=== PATIENT | male | born 1965 | race Caucasian/White ===

== ENCOUNTER 2025-01-08 21:03 | Emergency (ER) | payer OTHER, SELFPAY ==
[2025-01-08 21:09] VITALS: BP 149/96; PULSE 82; RESP 16; TEMP 36.4; O2SAT 95; BMI 34.3
--- NOTE | 2025-01-08 21:28 | CRLHL7_ITS ---
For Patients: As a result of the Century Cures Act, medical imaging exams and procedure reports are released immediately into your electronic medical record. You may view this report before your referring provider. If you have questions, please contact your health care provider. INDICATION: Fell onto back, hit head, pain in lower cervical and upper thoracic spine. TECHNIQUE: CT head without contrast. COMPARISON: None. FINDINGS: Detailed evaluation slightly limited by motion. Within these limits: CSF spaces: Within normal limits for age. Brain parenchyma and extra-axial spaces: Mild generalized volume loss consistent with physiologic aging. No sign of mass, hemorrhage, or midline shift. No extra-axial fluid collection. Skull base and calvarium: The visualized paranasal sinuses and mastoid air cells demonstrate no acute or significant findings. The visualized orbits are grossly unremarkable. No skull fractures. IMPRESSION: No acute intracranial abnormality. No acute fracture. Please note that all CT scans at this facility use dose modulation, iterative reconstruction, and/or weight-based dosing when appropriate to reduce radiation dose to as low as reasonably achievable. Dictated by Matt Becker MD @ 01/08/2025 10:39:23 PM (Electronically Signed)
--- NOTE | 2025-01-08 21:28 | CRLHL7_ITS ---
For Patients: As a result of the Cures Act, medical imaging exams and procedure reports are released immediately into your electronic medical record. You may view this report before your referring provider. If you have questions, please contact your health care provider. INDICATION: Fell onto back, pain in lower cervical and upper thoracic spine. TECHNIQUE: CT cervical spine without contrast. COMPARISON: None. FINDINGS: Vertebrae: Alignment is unremarkable. There are no fractures or suspicious bony lesions. Discs and facet joints: Multilevel spinal degenerative changes. Extraspinal findings: Prevertebral soft tissues, visualized airway, and visualized lungs are unremarkable. IMPRESSION: No acute fracture or dislocation. Please note that all CT scans at this facility use dose modulation, iterative reconstruction, and/or weight-based dosing when appropriate to reduce radiation dose to as low as reasonably achievable. Dictated by Matt Becker MD @ 01/08/2025 10:44:21 PM (Electronically Signed)
--- NOTE | 2025-01-08 21:28 | CRLHL7_ITS ---
For Patients: As a result of the Century Cures Act, medical imaging exams and procedure reports are released immediately into your electronic medical record. You may view this report before your referring provider. If you have questions, please contact your health care provider. INDICATION: Fell onto back, pain in lower cervical and upper thoracic spine. TECHNIQUE: CT thoracic spine without contrast. COMPARISON: None. FINDINGS: Vertebrae: No definite acute fracture or dislocation. Mild anterior wedging of the T5 vertebral body, favored chronic. Exaggerated thoracic kyphosis. Discs and facet joints: Multilevel degenerative changes. Extraspinal findings: Prevertebral soft tissues are unremarkable. No acute or significant extraosseous findings. IMPRESSION: No definite acute fracture or dislocation. Please note that all CT scans at this facility use dose modulation, iterative reconstruction, and/or weight-based dosing when appropriate to reduce radiation dose to as low as reasonably achievable. Dictated by Matt Becker MD @ 01/08/2025 10:54:35 PM (Electronically Signed)
--- NOTE | 2025-01-08 21:29 | ED.GENADULT ---
HPI - General Adult General Date Seen: 01/08/25 Chief complaint: Back Injury/Pain Stated complaint: fell, hit head Time Seen by Provider: 01/08/25 21:08 Source: patient Mode of arrival: ambulatory Limitations: no limitations History of Present Illness HPI narrative: Patient is a 59-year-old male presenting to emergency department after slipping on the ice around 20:00. States he fell backwards and hit his upper back in the back of his head. States most of his pain seems to be in his upper back just below the shoulders but does state is improving. He is not on any blood thinners. Denies photophobia, phonophobia, headache, weakness, numbness, chest pain, shortness breath. No other injuries noted. States he came in to make sure there are no fractures. Related Data Home Medications ?Medication ?Instructions ?Recorded ?Confirmed No Known Home Medications 01/08/25 01/08/25 Allergies Allergy/AdvReac Type Severity Reaction Status Date / Time No Known Drug Allergies Allergy Verified 01/08/25 21:15 Review of Systems Status of ROS: Reports: 10 or more systems reviewed and unremarkable except as noted in History and below Exam Narrative: Exam Narrative: Const: Well-nourished, Well-developed, in mild distress Eyes: PERRL, no conjunctival injection, and symmetrical lids HENT: Atraumatic external nose and ears. Moist mucous membranes. Neck: Symmetric, trachea midline, No thyromegaly. CVS: RRR, No murmurs or gallops. Peripheral pulses 2+ and equal in all extremities RESP: Unlabored respiratory effort. Clear to auscultation bilaterally. GI: Nontender/Nondistended, No rebound or guarding. MSK:Extremities w/o deformity, Normal Active ROM, midline tenderness around T1 Skin: Warm, Dry. No rashes or lesions. Neuro: Normal Muscle tone, No focal neurological deficits. Psych: Awake, Alert, & Oriented x3. Appropriate mood and affect. Const: Vital Signs, click to edit/add: Vital Signs - 24 hr 01/08/25 21:09 Temperature 97.6 F Pulse Rate [Left P ulse Oximeter] 82 Respiratory Rate 16 Blood Pressure [Ri ght Upper Arm] 149/96 H Pulse Oximetry 95 Oxygen Delivery Me thod Room Air Course Vital Signs Vital signs: Initial Vital Signs Temperature 97.6 F 01/08/25 21:09 Temperature Source Temporal Artery Scan 01/08/25 21:09 Pulse Rate 82 01/08/25 21:09 Pulse Rhythm Regular 01/08/25 21:09 Respiratory Rate 16 01/08/25 21:09 Blood Pressure 149/96 H 01/08/25 21:09 Blood Pressure Mean 113 H 01/08/25 21:09 Blood Pressure Position Sitting 01/08/25 21:09 Pulse Oximetry 95 01/08/25 21:09 Oxygen Delivery Method Room Air 01/08/25 21:09 Vital Signs Temperature 97.6 F 01/08/25 21:09 Pulse Rate 82 01/08/25 21:09 Respiratory Rate 16 01/08/25 21:09 Blood Pressure 149/96 H 01/08/25 21:09 Pulse Oximetry 95 01/08/25 21:09 Oxygen Delivery Method Room Air 01/08/25 21:09 Temperature 97.6 F 01/08/25 21:09 Pulse Rate 82 01/08/25 21:09 Respiratory Rate 16 01/08/25 21:09 Blood Pressure 149/96 H 01/08/25 21:09 Pulse Oximetry 95 01/08/25 21:09 Oxygen Delivery Method Room Air 01/08/25 21:09 Medical Decision Making MDM Narrative Medical decision making narrative: Patient is 59-year-old male presenting to the emergency department after a fall. This was a mechanical fall. He has full range of motion of his neck by will CT scan his head and cervical spine. Has also been upper thoracic midline pain so it is CT scan of the thoracic spine. He is agreeable to this plan. CT is reviewed by myself the radiologist showed no acute concerning abnormalities. Patient is doing well at this time is safe for discharge. He is agreeable to this plan. Imaging Data CT scan head: Attestation: I have reviewed the pertinent imaging results. Radiologist's impression: No acute intracranial abnormality. No acute fracture. Please note that all CT scans at this facility use dose modulation, iterative reconstruction, and/or weight-based dosing when appropriate to reduce radiation dose to as low as reasonably achievable. Dictated by Matt Becker MD @ 01/08/2025 10:39:[address] scan cervical spine: Attestation: I have reviewed the pertinent imaging results. Radiologist's impression: No acute fracture or dislocation. Please note that all CT scans at this facility use dose modulation, iterative reconstruction, and/or weight-based dosing when appropriate to reduce radiation dose to as low as reasonably achievable. Dictated by Matt Becker MD @ 01/08/2025 10:44:[address] scan thoracic spine: Attestation: I have reviewed the pertinent imaging results. Radiologist's impression: No definite acute fracture or dislocation. Please note that all CT scans at this facility use dose modulation, iterative reconstruction, and/or weight-based dosing when appropriate to reduce radiation dose to as low as reasonably achievable. Dictated by Matt Becker MD @ 01/08/2025 10:54:35 PM Discharge Plan Discharge Clinical Impression: Thoracic back pain Qualifiers: Chronicity: acute Back pain laterality: midline Qualified Code(s): M54.6 - Pain in thoracic spine Patient Disposition: Home, Self-Care Condition: Stable Instructions: Back Pain (ED) Additional Instructions: No fractures were seen on your imaging. Take Tylenol and ibuprofen for pain. Return to emergency department for new or worsening symptoms. Prescriptions: No Action No Known Home Medications Follow Up/Referrals: Provider,Not a Local [Primary Care Provider] - Stand Alone Forms: MyHealth Info Instructions
--- OUTSIDE RECORDS SUMMARY | 2025-01-08 22:19 | XMS_ITS | Clinical Summary ---
Author Organization [facility] Address [address] [place] [address] Care Team Providers Care Escort Vehicle Driver Name Role Phone Pcp, No Primary Care Provider Unavailabl e Allergies No known active allergies Medications CPAPIndications :LYDIA (obstructive sleep apnea) CPAP machine for home use at pressure 6-17 cmw, full face mask x1/3month with full face cushion x1/mo 1 Each 11 03/16/2023 Active Active Problems Problem Noted Date Diagnosed Date LYDIA HST AHI-57 04/28/2021 Allergic rhinitis 04/28/2021 Social History Tobacco Use Types Packs/Day Years Used Date Smoking Tobacco: Every Day Cigarettes 0.5 31 Smokeless Tobacco: Never Tobacco Cessation:Ready to Q uit: Yes; Counseling Given: Yes Comments:cut down from 2 ppd to 1/2 ppd Alcohol Use Standard Drinks/Week Comments Yes 0 (1 standard drink = 0.6 oz pur e alcohol) rare <1 year Social Connections Answer Date Recorded Frequency of Communication with Friends and Fami ly Not on file 11/06/2021 Financial Resource Strain Answer Date R ecorded Difficulty of Paying Living Expenses Not on file 11/06/2021 Difficulty of Paying Living Expenses Not on file 11/06/2021 Sex and Gender Information Value Date Recorded Sex Assigned at Not on file 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 Gender Identity Not on file Sexual Orientation Not on file Obstetrics History Last Filed Vital Signs Vital Sign Reading Time Taken Comments Blood Pressure 158/83 07/08/2021 3:16 PM CDT Pulse 76 07/08/2021 3:16 PM CDT Temperature 36.8 C (98.3 F) 11/08/2019 11:30 AM FIELD OPERATIONS TECHNICIAN Respiratory Rate 16 11/08/2019 12:1 5 PM FIELD OPERATIONS TECHNICIAN Oxygen Saturation 95% 07/08/2021 3:14 PM CDT Inhaled Oxygen Concentration - - Weight 114.8 kg (253 lb 1.6 oz) 07/08/2021 3:14 PM CDT Height 187.8 cm (6' 1.92) 03/30/2021 2:10 PM CD T Body Mass Index 32.57 03/30/2021 2:10 PM CDT Plan of Treatment Health Maintenance Due Date Last Done Comments Tdap 1974 Depression screening for age 12+ 1975 HIV for age 15-65 1978 Hepatitis C screening for age 18-79 1981 Tetanus booster 1983 Colonoscopy through age 75 2008 Lipids for age 45-75 2008 Pneumococcal series for age 50+ (1 of 1 - PCV) 013 Zoster (shingles) series for age 50+ (1 of 2) 05/27/20 13 BMI (ht and wt on same day) for age 18+ 03/30/2022 0 03/30/2021 COVID-19 vaccine series ( - 2023- season) 4 Influenza for age 50-64 07/07/2024 RSV vaccine for adults or pr egnancy (1 - 1-dose 75+ series) 2038 Medical Devices Implanted Type Area Data Visualization Developer Device Identifier Shelf Expiration Date Model / Serial / Lot Mesh Ventral 4.5in Ventralight St [address] - [id number] Implanted:Qty: 1 on 11/08/2019 by Julius Miller MD at [facility] N/A: Abdomen [employer] 08/03/2021 [id number] / / [id number] Description:[employer] Insurance * Guarantor: Serge Garcia Account Type Relation to Patient Date of Phone Billing Address Personal/Family Self 1965 [id number] [place] [address] LAURA SAINI [id number] Advance Directives * Full Code (Latest Code Status on File) Date Activated Date Inactivated Comments 11/08/2019 7:29 AM 11/08/2019 2:30 PM Question Answer Comments Code Status Discussion: Not Discussed Care Teams Escort Vehicle Driver Relationship Specialty Start Date End Date Pcp, No . PCP - General 03/17/21
--- OUTSIDE RECORDS SUMMARY | 2025-01-08 22:19 | XMS_ITS | Encounter Summary ---
Author Organization [place] Address [address] [place] [address] Care Team Providers Care Vice President Sales Name Role Phone Giovanny Neil PA-C Primary Care Provider [facility] Primary Care Provider Encounter Details Date Type Department Care Team (Late st Contact Info) Description 08/20/2013 [facility] [address] [address] [facility] Social History Tobacco Use Types Packs/Day Years Used Date Smoking Tobacco: Some Days Cigars Last attempted to quit: 07/05/2011 Smokeless Tobacco: Never Comments:2-5 cigars daily Alcohol Use Standard Drinks/Week Comments No 0 (1 standard drink = 0.6 oz pur e alcohol) Sex and Gender Information Value Date Recorded Sex Assigned at Not on file Legal Sex 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
--- OUTSIDE RECORDS SUMMARY | 2025-01-08 22:19 | XMS_ITS | Clinical Summary ---
Author Organization [facility] Address [address] [place] [address] Care Team Providers Care Recovery Room Nurse Name Role Phone Needs Pcp, Assignment Primary Care Provider [phone] Source Comments You are receiving this document as you are listed as the primary care provider,follow-up provider, or the patient has been referred to you for consultation.This is in compliance with the Medicare and[facility] Hospital[facility] EHR Incentive Program,which states Providers who transition their patient to another setting of careor provider of care or refers their patient to another provider of care shouldprovide summary care record for each transition of care or referral. [facility] Allergies No known active allergies Medications ibuprofen (MOTRIN) 200 MG tablet Take 200-400 mg by mouth every 4 hours as needed for Pain. Active Active Problems Problem Noted Date Diagnosed Date Tobacco use disorder 09/25/2017 Class 1 obesity due to exces s calories without serious comorbidity with body mass index (BMI) of 32.0 to 32.9 in adult 09/25/2017 LYDIA (obstructive sleep apnea) 09/25/2017 Hyperlipidemia LDL goal <130 07/29/2013 Immunizations Immunization Administration Dates Next Due Influenza IIV4 (Quadrivalent) 0.5mL ([id number]) 04/2019 Tdap 07/05/2013 Family History Medical History Relation Name Comments Cancer, Lung Father Coronary Artery Disease Mother Diabetes, Type II Mother Diabetes, Type II Brother Migraines Daughter 1 Migraines Daughter 2 Relation Name Status Comments Father (Age 43) Mother (Age 63) DC Brother Alive Daughter 1 Alive Daughter 2 Alive Daughter 3 Alive Sister 1 Alive Sister 2 Alive Son 1 Alive Son 2 Alive Social History Tobacco Use Types Packs/Day Years Used Date Smoking Tobacco: Every Day Cigarettes 0.5 31 Smokeless Tobacco: Never Tobacco Cessation:Ready to Q uit: No; Counseling Given: Yes Alcohol Use Standard Drinks/Week Comments Yes 0 (1 standard drink = 0.6 oz pur e alcohol) rare less than once a year PHQ-2 Answer Date Recorded PHQ-2 Score 0 10/11/2019 Sex and Gender Information Value Date Recorded Sex Assigned at Not on file Legal Sex Male 5:15 AM CDT Gender Identity Not on file Sexual Orientation Not on file 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 Not on file Not on file Not on file Last Filed Vital Signs Vital Sign Reading Time Taken Comments Blood Pressure 130/86 10/28/2019 3:15 PM HEATING EQUIPMENT REPAIRER Pulse 93 10/28/2019 3:15 PM HEATING EQUIPMENT REPAIRER Temperature 36.2 C (97.2 F) 10/28/2019 3:15 PM HEATING EQUIPMENT REPAIRER Respiratory Rate 12 10/11/2017 9:21 AM HEATING EQUIPMENT REPAIRER Oxygen Saturation 96% 10/28/2019 3:15 PM HEATING EQUIPMENT REPAIRER Inhaled Oxygen Concentration - - Weight 109.6 kg (241 lb 9.6 oz) 10/28/2019 3:15 PM HEATING EQUIPMENT REPAIRER Height 179.1 cm (5' 10.5) 10/28/2019 3:15 PM CS T Body Mass Index 34.18 10/28/2019 3:15 PM HEATING EQUIPMENT REPAIRER Plan of Treatment Health Maintenance Due Date Last Done Comments Hep C Screening (Preventive Services) 1965 PSA Screening Discussion 1965 Pneumococcal (1 - PCV) 1969 HIV Screening (Preventive Services) 1979 Adult Preventive Visit 1981 Pneumococcal 50+ Yrs (1 of 2 - PCV) 1982 Cholesterol 1998 FIT Colon Cancer Screening 2007 Zoster/Shingles (1 of 2) 2013 DTaP/Tdap/Td (2 - Tdap) 07/05/2023 07/05/2013 COVID-19 Vaccine (3 - 2023-2 5 season) 2024 01/26/2021, 01/06/2021 Influenza (#1) 2024 08/25/2020, 10/11/2019 RSV (1 - 1-dose 75+ series) 2038 HepA Aged Out No longer eligi ble based on patient's age to complete this topic HepB Aged Out No longer eligi ble based on patient's age to complete this topic Hib Aged Out No longer eligi ble based on patient's age to complete this topic IPV (Polio) Aged Out No longer eligi ble based on patient's age to complete this topic MCV4 Aged Out No longer eligi ble based on patient's age to complete this topic Meningococcal B Aged Out No longer el igible based on patient's age to complete this topic Insurance SELF INSURED S[facility] Care Teams Recovery Room Nurse Relationship Specialty Start Date End Date Needs Pcp, [place] [address] PCP - General 07/27/22
--- OUTSIDE RECORDS SUMMARY | 2025-01-08 22:19 | XMS_ITS | Clinical Summary ---
Author Organization [facility] Address [address] [place] [address] Care Team Providers Care Rug Backing Stenciler Name Role Phone [facility] Primary Care Provider Allergies No known active allergies Medications No known medications Active Problems Problem Noted Date Diagnosed Date Hyperlipidemia LDL goal <130 07/29/2013 Resolved Problems Problem Noted Date Diagnosed Date Resolved Date CARDIOVASCULAR SCREENING; LD L GOAL LESS THAN 160 07/05/2013 07/05/2013 CARDIOVASCULAR SCREENING; LD L GOAL LESS THAN 130 07/05/2013 07/29/2013 Immunizations Name Administration Dates Next Due TDAP Vaccine (Adacel) 07/05/2013 Family History Medical History Relation Comments Cancer Father Lung Myocardial Infarction Maternal Grandfather Myocardial Infarction Maternal Grandmother Heart Disease Mother angina Hypertension Mother Kidney Disease Mother Myocardial Infarction Mother Thyroid Disease Mother Relation Status Comments Father Maternal Grandfather Maternal Grandmother Mother Social History Tobacco Use Types Packs/Day Years Used Date Smoking Tobacco: Some Days Cigars Last attempted to quit: 07/05/2011 Smokeless Tobacco: Never Comments:2-5 cigars daily Alcohol Use Standard Drinks/Week Comments No 0 (1 standard drink = 0.6 oz pur e alcohol) Adolescent Education Answer Date Record ed Getting School Help Needed Not on file 08/13 Sex and Gender Information Value Date Recorded Sex Assigned at Not on file Legal Sex Male 3:09 AM MARKET RESEARCH ASSISTANT Gender Identity Not on file Sexual Orientation Not on file Last Filed Vital Signs Vital Sign Reading Time Taken Comments Blood Pressure 135/84 10/29/2017 1:04 AM MARKET RESEARCH ASSISTANT Pulse 64 07/29/2013 11:33 AM CDT Temperature 36.6 C (97.8 F) 10/29/2017 1:04 AM MARKET RESEARCH ASSISTANT Respiratory Rate 16 10/29/2017 1:04 AM MARKET RESEARCH ASSISTANT Oxygen Saturation 99% 10/29/2017 1:04 AM MARKET RESEARCH ASSISTANT Inhaled Oxygen Concentration - - Weight 106.6 kg (235 lb) 10/29/2017 1:04 AM MARKET RESEARCH ASSISTANT Height 182.9 cm (6') 10/29/2017 1:04 AM MARKET RESEARCH ASSISTANT Body Mass Index 31.87 10/29/2017 1:04 AM MARKET RESEARCH ASSISTANT Plan of Treatment Not on file Medical Devices Implanted Type Area Field Application Engineer Device Identifier Shelf Expiration Date Model / Serial / Lot Mesh Ventralex Hernia 2.5 [place] W/Strap [id number] Implanted:Qty : 1 on 07/31/2013 by Robyn Valentine DO at [facility] N/A: Umbil[employer] 12/06/2014 [id number] / / [id number] Insurance [facility] Care Teams Rug Backing Stenciler Relationship Specialty Start Date End Date [facility] [id number] [place] [phone] PCP - General 10/29/17
== END 2025-01-08 23:15 | disposition home or self-care (01) ==
PROVIDERS: Emergency Provider Student in an Organized Health Care Education/Training Program
DX: M54.6 Pain in thoracic spine (principal); W00.9XXA Unspecified fall due to ice and snow, initial encounter
CPT/HCPCS: 70450; 72125; 72128; 99284